=== PATIENT | female | born 1955 | race Caucasian/White ===

== ENCOUNTER 2020-12-10 23:18 | Emergency (ER) | payer MEDICARE ==
[2020-12-10 23:24] VITALS: BP 125/85; PULSE 72; RESP 18; TEMP 98.2
--- NOTE | 2020-12-11 00:17 | ED ---
Recheck HPI - General Chief Complaint: Recheck/Abnormal Lab/Rx Stated Complaint: Feeding Tube Placement Time Seen by Provider: 12/10/20 23:28 Source: patient, family Mode of arrival: wheelchair Limitations: language barrier, physical limitation - History of Present Illness Initial Comments: This patient is a 65-year-old woman with history of ALS who presents because her feeding tube had fallen out. Patient had a PEG tube placement in May of this year due to dysphagia. When it was time to give some fluid through the PEG tube this evening, the tube came right out. Patient denies any associated symptoms. Complaint: other -: unknown Initial Visit For: other Returns Today for: other Symptoms Since Prior Visit: no new symptoms Context: other Associated Symptoms: none - Related Data Allergies Allergy/AdvReac Type Severity Reaction Status Date / Time codeine Allergy Nausea & Verified 12/10/20 23:24 Vomiting Review of Systems ROS Statement: Those systems with pertinent positive or pertinent negative responses have been documented in the HPI. ROS Other: All systems not noted in ROS Statement are negative. Constitutional: Denies: fever Respiratory: Denies: cough, dyspnea Gastrointestinal: Denies: abdominal pain, vomiting, diarrhea Skin: Denies: rash Past Medical History Past Medical History: Thyroid Disorder Additional Past Medical History / Comment(s): ALS, History of Any Multi-Drug Resistant Organisms: None Reported Past Surgical History: Section, Orthopedic Surgery Additional Past Surgical History / Comment(s): Feeding tube Past Psychological History: No Psychological Hx Reported Smoking Status: Never smoker Past Alcohol Use History: None Reported Past Drug Use History: None Reported General Exam Limitations: language barrier, physical limitation General appearance: alert, in no apparent distress Head exam: Present: atraumatic, normocephalic Respiratory exam: Present: normal lung sounds bilaterally. Absent: respiratory distress, wheezes, rales, rhonchi, stridor Cardiovascular Exam: Present: regular rate, normal rhythm, normal heart sounds. Absent: systolic murmur, diastolic murmur, rubs, gallop GI/Abdominal exam: Present: soft, other (There is ostomy present in the left abdomen without any sign of infection. There is a small amount of exuberant granulation tissue. No abdominal tenderness). Absent: distended, tenderness, guarding, rebound, rigid, mass Skin exam: Present: warm, dry, intact, normal color. Absent: rash Course Vital Signs 12/10/20 23:19 Temperature 98.2 F Pulse Rate 72 Respiratory 18 Rate Blood Pressure 125/85 O2 Sat by Pulse 99 Oximetry Procedures - Feeding Tube Replacement Reason for Replacement: fell out Initial Tube Inserted: greater than 2 weeks Type of Tube: gastrostomy Use of Tube: medications and feeding Insertion Site Prior to Procedure: clean Tube Used for Reinsertion: other Hebrew Tube Size (F): 16 Balloon Size (mls): 5 Verification of Placement: gastrografin injection Tube Secured by: G-tube attachment device Patient Tolerated Procedure: well, no complications Disposition Clinical Impression: Feeding tube dysfunction Disposition: HOME SELF-CARE Condition: Good Instructions (If sedation given, give patient instructions): PEG Tube Insertion (DC) Is patient prescribed a controlled substance at d/c from ED?: No Referrals: Ajith Leon MD [Primary Care Provider] - 1-2 days
--- NOTE | 2020-12-11 00:58 | XR ---
EXAMINATION TYPE: XR KUB DATE OF EXAM: 12/11/2020 COMPARISON: NONE HISTORY: PEG tube replacement TECHNIQUE: Single view FINDINGS: 40 mL of Isovue was injected into the gastrostomy tube. Contrast appears to opacify the fun dus and body of the stomach. There is no sign of extravasation. Bowel gas pattern is nonacute. Gastro stomy tube is at the greater curvature of the stomach. There is no college service officer film obtained. IMPRESSION: Gastrostomy tube appears in good position. No sign of a leak.
== END 2020-12-11 01:12 | disposition home or self-care (01) ==
LOC: EC 23:18
DX: K94.23 Gastrostomy malfunction (principal); Z88.5 Allergy status to narcotic agent
CPT/HCPCS: 99283; 43762; 74018; Q9967